=== PATIENT | male | born 1965 | race Hispanic/Latino ===

== ENCOUNTER 2021-07-16 08:23 | Inpatient (IN) | payer MEDICARE, OTHER ==
[2021-07-12 11:11] LABS: BASOPHILS % (AUTO) 0.8 % (0.0-5.0); EOSINOPHILS % (AUTO) 1.4 % (0.0-8.0); HEMATOCRIT 45.5 % (42-54); LYMPHOCYTES % (AUTO) 37.6 % (21.0-51.0); MEAN CORPUSCULAR HEMOGLOBIN 33.1 pg (27.0-33.0); MEAN CORPUSCULAR HGB CONC 34.3 g/dL (32.0-36.0); MEAN CORPUSCULAR VOLUME 96.4 fL (79-99); MONOCYTES % (AUTO) 9.7 % (3.0-13.0); NEUTROPHILS % (AUTO) 50.3 % (40.0-77.0); PLATELET COUNT (AUTO) 161 K/uL (130-400); RED BLOOD CELL COUNT(AUTO) 4.72 MIL/uL (4.50-6.20); RED CELL DISTRIBUTION WIDTH 13.4 % (11.0-15.5); WHITE BLOOD COUNT (AUTO) 5.1 K/uL (4.8-10.8)
[2021-07-12 11:18] VITALS: BP 147/85
[2021-07-12 11:28] LABS: POTASSIUM 4.3 mmol/L (3.5-5.1)
[~2021-07-16] VITALS: Ht 177.8 cm; Wt 92.8 kg
[~2021-07-16 08:23] MED LIST: AEC81 PO; ATOR10 PO; LISI5TAB21 PO; METO-408 PO
[2021-07-18] VITALS (28 sets, daily range): BP systolic 111–150; BP diastolic 55–96
[2021-07-18] MEDS ORDERED: LACTATED RINGERS 1000ML 1,000 ML IV ONE (06:05)
[2021-07-18] MEDS ORDERED: CEFAZOLIN SODIUM 1 GM VIAL ONE ×3 (06:05→11:49)
[2021-07-18] MEDS ORDERED: THROMBIN-JMI 20000 UNIT KIT TP ONE (06:44)
[2021-07-18] MEDS ORDERED: MORPHINE PF 100MG/10ML AMP IV ONE (06:44)
[2021-07-18] MEDS ORDERED: BUPIVACAINE/EPI/PF 0.25% 30ML VIAL IJ ONE (06:44)
[2021-07-18] MEDS ORDERED: LIDOCAINE PF 100MG/5ML (2%) SYRINGE 5ML ONE ×2 (07:16→12:59)
[2021-07-18] MEDS ORDERED: SUCCINYLCHOLINE CHLORIDE 20 MG/ML 10 ML VIAL ONE (07:16)
[2021-07-18] MEDS ORDERED: PROPOFOL 10 MG/ML 20ML VIAL IV ONE (07:16)
[2021-07-18] MEDS ORDERED: ROCURONIUM 10MG/1ML SYR 10 MG/ML ML ONE ×2 (07:17→08:43)
[2021-07-18] MEDS ORDERED: FENTANYL CITRATE PF 50 MCG/1 ML 2ML VIAL ONE ×4 (07:17→12:39)
[2021-07-18] MEDS: CEFAZOLIN SODIUM 2 GM VIAL IV SCH ×2 (07:41→08:00)
[2021-07-18] MEDS ORDERED: MEPERIDINE-PF 25 MG/ML SYG ONE (10:22)
[2021-07-18] MEDS ORDERED: GLYCOPYRROLATE 1 MG/5 ML SYRINGE ONE (12:51)
[2021-07-18] MEDS ORDERED: NEOSTIGMINE 5MG/5ML SYR IV ONE (12:51)
[2021-07-18] MEDS ORDERED: KETOROLAC 30MG VIAL (30MG/ML) ONE (12:52)
[2021-07-18] MEDS ORDERED: ONDANSETRON 4MG INJ ONE (12:52)
[2021-07-18] MEDS ORDERED: HYDROCODONE/ACETAMINOPHEN 5/325 MG TAB PO PRN (14:00)
[2021-07-18] MEDS ORDERED: MORPHINE 2 MG SYG IVP PRN (14:00)
[2021-07-18] MEDS ORDERED: 0.9%NACL 10ML VIAL IVP PRN (14:00)
[2021-07-18] MEDS: DEXAMETHASONE SOD PHOSPHATE 4 MG/ML 1ML VIAL IVP SCH ×2 (14:00→20:03)
[2021-07-18] MEDS ORDERED: PROMETHAZINE HCL 25 MG/ML 1ML AMPULE IM PRN (14:00)
[2021-07-18] MEDS: LACTATED RINGERS 1000ML 1,000 ML IV SCH (15:38)
[2021-07-18] MEDS ORDERED: CEFAZOLIN SODIUM 1 GM VIAL IVP SCH (20:00)
[2021-07-18] MEDS ORDERED: ATORVASTATIN 10 MG TABLET PO SCH (21:00)
[2021-07-19] MEDS: DEXAMETHASONE SOD PHOSPHATE 4 MG/ML 1ML VIAL IVP SCH (01:35)
[2021-07-19] MEDS: LACTATED RINGERS 1000ML 1,000 ML IV SCH (01:36)
[2021-07-19 04:15] VITALS: BP 110/68
[2021-07-19 07:30] VITALS: BP 121/69
[2021-07-19] MEDS ORDERED: METOPROLOL SUCCINATE 50 MG TAB.SR.24H PO SCH (09:00)
[2021-07-19] MEDS ORDERED: ASPIRIN 81 MG EC TAB PO SCH (09:00)
[2021-07-19] MEDS ORDERED: LISINOPRIL 5 MG TABLET PO SCH (09:00)
== END 2021-07-19 11:30 | disposition home or self-care (01) | DRG 460 ==
LOC: EDSTATUS 13:00 → DAHIP 07-18 05:33 → 4BH 07-18 15:38
PROVIDERS: ADMIT Neurological Surgery; ATTEND Neurological Surgery
PROC: 01NB0ZZ Release Lumbar Nerve, Open Approach (ICD-10-PCS; principal; 2021-07-18 07:30)
PROC: 0SG00AJ Fusion of Lumbar Vertebral Joint with Interbody Fusion Device, Posterior Approach, Anterior Column, Open Approach (ICD-10-PCS; 2021-07-18 07:30)
PROC: 0SB20ZZ Excision of Lumbar Vertebral Disc, Open Approach (ICD-10-PCS; 2021-07-18 07:30)
PROC: 4A11X4G Monitoring of Peripheral Nervous Electrical Activity, Intraoperative, External Approach (ICD-10-PCS; 2021-07-18 07:30)
DX: M48.061 Spinal stenosis, lumbar region without neurogenic claudication (principal); E78.5 Hyperlipidemia, unspecified; M25.78 Osteophyte, vertebrae; M51.16 Intervertebral disc disorders with radiculopathy, lumbar region; I10 Essential (primary) hypertension; Z20.822 Contact with and (suspected) exposure to COVID-19; M21.372 Foot drop, left foot; M21.371 Foot drop, right foot; E11.9 Type 2 diabetes mellitus without complications; V80.010A Animal-rider injured by fall from or being thrown from horse in noncollision accident, initial encounter; Y93.52 Activity, horseback riding; Y92.89 Other specified places as the place of occurrence of the external cause; Y99.8 Other external cause status
CPT/HCPCS: 36415; 72110; 80051; 85025; 87635; A4344; C9803; G0378; J0330; J0690; J1100; J1885; J2001; J2175; J2274; J2405; J2704; J2710; J3010; J3490; J7120

== ENCOUNTER → 2021-08-20 | Outpatient (CLI) | payer MEDICARE | END | disposition home or self-care (01) | LOC: RAH 10:45 | PROVIDERS: ATTEND Neurological Surgery | DX: S22.080A Wedge compression fracture of T11-T12 vertebra, initial encounter for closed fracture (principal); M25.78 Osteophyte, vertebrae; M51.36 Other intervertebral disc degeneration, lumbar region; X58.XXXA Exposure to other specified factors, initial encounter; Y93.89 Activity, other specified; Y92.89 Other specified places as the place of occurrence of the external cause; Y99.8 Other external cause status | CPT/HCPCS: 72100 ==